=== PATIENT | male | born 1965 | race American Indian/Alaskan Native ===

== ENCOUNTER 2018-10-01 03:20 | Emergency (ER) | payer BC, OTHER ==
[2018-10-01 03:39] VITALS: BP 161/83
--- NOTE | 2018-10-01 04:21 | Emergency Department Report ---
ED General Adult HPI - General Chief complaint: Skin/Abscess/Foreign Body Stated complaint: BUMP ON CHEST/RT ARM PAIN Time Seen by Provider: 10/01/18 04:15 Source: patient Mode of arrival: Ambulatory Limitations: No Limitations - History of Present Illness Initial comments: Has a cystic mass to the right upper chest nontender. Occasional soft and renee s been present for 4 months. No fevers, chills, sick sweats. Also had a similar lesion to the left cheek of his face which evacuated copious amount of discharge was still grossly Smellie's sensation when the area is aggravated. Location: face, chest Quality: dull Consistency: constant Improves with: none Worsens with: none Associated Symptoms: denies: confusion, chest pain, cough, diaphoresis, loss of appetite, malaise, nausea/vomiting, rash, shortness of breath, syncope - Related Data Previous Rx's Medication Instructions Recorded Last Taken Type Cyclobenzaprine [Flexeril] 10 mg PO TID PRN #14 tablet 03/22/16 Unknown Rx HYDROcodone/APAP 5-325 [[place] 1 - 2 each PO Q6HR PRN #14 tablet 03/22/16 Unknown Rx 5/325] Ibuprofen [Motrin 800 MG tab] 800 mg PO Q8HR PRN #20 tablet 03/22/16 Unknown Rx Chlorhexidine Gluconate [Hibiclens] 10 ml TP BID #240 liquid 10/01/18 Unknown Rx Clindamycin [Clindamycin CAP] 150 mg PO Q6H #28 capsule 10/01/18 Unknown Rx Allergies Allergy/AdvReac Type Severity Reaction Status Date / Time No Known Allergies Allergy Unverified 03/22/16 01:07 ED Review of Systems ROS: Stated complaint: BUMP ON CHEST/RT ARM PAIN Other details as noted in HPI Comment: All other systems reviewed and negative ED Past Medical Hx - Past Medical History Previous Medical History?: No - Surgical History Past Surgical History?: No - Social History Smoking Status: Never Smoker Substance Use Type: Alcohol - Medications Home Medications: Home Medications Medication Instructions Recorded Confirmed Last Taken Type Cyclobenzaprine [Flexeril] 10 mg PO TID PRN #14 tablet 03/22/16 Unknown Rx HYDROcodone/APAP 5-325 [[place] 1 - 2 each PO Q6HR PRN #14 tablet 03/22/16 Unknown Rx 5/325] Ibuprofen [Motrin 800 MG tab] 800 mg PO Q8HR PRN #20 tablet 03/22/16 Unknown Rx Chlorhexidine Gluconate [Hibiclens] 10 ml TP BID #240 liquid 10/01/18 Unknown Rx Clindamycin [Clindamycin CAP] 150 mg PO Q6H #28 capsule 10/01/18 Unknown Rx ED Physical Exam - General Limitations: No Limitations General appearance: alert, in no apparent distress - Head Head exam: Present: atraumatic, normocephalic - Eye Eye exam: Present: normal appearance, PERRL, EOMI Pupils: Present: normal accommodation - ENT ENT exam: Present: mucous membranes moist - Neck Neck exam: Present: normal inspection - Respiratory Respiratory exam: Present: normal lung sounds bilaterally. Absent: respiratory distress - Cardiovascular Cardiovascular Exam: Present: regular rate, normal rhythm. Absent: systolic murmur, diastolic murmur, rubs, gallop - GI/Abdominal GI/Abdominal exam: Present: soft, normal bowel sounds - Rectal Rectal exam: Present: deferred - Extremities Exam Extremities exam: Present: normal inspection - Back Exam Back exam: Present: normal inspection - Neurological Exam Neurological exam: Present: alert, oriented X3 - Psychiatric Psychiatric exam: Present: normal affect, normal mood - Skin Skin exam: Present: warm, dry, intact, normal color, other (erythema and 1.5 cm cystic mass in the right chest.). Absent: rash ED Course Vital Signs 10/01/18 03:37 Temperature 98.5 F Pulse Rate 72 Respiratory 18 Rate Blood Pressure 161/83 O2 Sat by Pulse 97 Oximetry - Procedure Description Procedures done: Incision and drainage inclusion cyst to the right upper chest. The area prepped and draped in aseptic fashion, #15 blade was used to excise the skin and then curved Noemy's was used to dissect the sac from the epidermis. It appears that the complete sac was evacuated with no complications. Assessment blood loss less than 2 mL wound was irrigated with a Betadine soak solution and then [place] saline. A nonstick dressing was applied. Critical care attestation.: If time is entered above; I have spent that time in minutes in the direct care of this critically ill patient, excluding procedure time. ED Disposition Clinical Impression: Inclusion cyst Disposition: DC- TO HOME OR SELFCARE Is pt being admited?: No Does the pt Need Aspirin: No Condition: Stable Instructions: Incision and Drainage (ED), Wound Healing and Your Diet (ED), Acute Wound Care (ED), Abscess Incision and Drainage (ED) Additional Instructions: Epidermoid Cysts Causes Diagnosis Treatment [place] What are epidermoid cysts? Epidermoid cysts, also called sebaceous, keratin, or epithelial cysts, are small, hard lumps that develop under the skin. These cysts are common. They grow slowly. They do not cause other symptoms and are nearly never cancerous. Epidermoid cysts are often found on the face, head, neck, back, or genitals. They can range in size from 1/4 inch to 2 inches across. They look like a small bump, are white to yellow in color, and are filled with thick, smelly matter. They do not cause any pain and can usually be ignored. What causes epidermoid cysts? Epidermoid cysts are usually caused by a buildup of keratin. Keratin is a protein that occurs naturally in skin cells. Cysts develop when the protein is trapped below the skin because of disruption to the skin or to a hair follicle. These cysts often develop in response to skin trauma, HPV infection, acne, or excessive exposure to the sunTrusted Source. An epidermoid cyst is more likely to develop in people with acne or other skin conditions. How are epidermoid cysts diagnosed? To diagnose epidermoid cysts, a physician will examine the bump and surrounding skin, as well as take a medical history. They will ask for details on how long the bump has been present and whether it has changed over time. Physicians can usually diagnose an epidermoid cyst by examination only, but sometimes an ultrasound or a referral to a emergency technician is needed to confirm the diagnosis. How are epidermoid cysts treated? Most epidermoid cysts either stop growing or go away on their own without treatment. Physicians will usually make note of a cyst and monitor it during each checkup to make sure that it has not changed. Since epidermoid cysts are very rarely cancerous, they do not pose a risk. Most are never treated. Treatment may be required if the cyst becomes red, swollen, painful, changes in size or character, or is infected. In such cases, treatment options include antibiotics and drainage. Sometimes the cyst may need to be surgically removed. It can also be removed for cosmetic reasons. What is the outlook for epidermoid cysts? In most cases, epidermoid cysts cause no long-term problems. Squeezing out the contents of the cyst on your own can lead to infection, so its best to leave the cyst alone. Once a cyst is drained, there is a possibility that it will grow back. Very rarely, epidermoid cysts can become cancerous. Any significant change in a cyst is reason to see your doctor. Referrals: JESSICA HOPKINS MD [Primary Care Provider] - 3-5 Days
== END 2018-10-01 04:55 | disposition home or self-care (01) ==
LOC: ED 03:20
DX: L72.0 Epidermal cyst (principal); Z79.899 Other long term (current) drug therapy